=== PATIENT | female | born 1965 | race Two or more races ===

== ENCOUNTER → 2016-11-28 | Outpatient (CLI) | payer OTHER ==
[~2016-11-28] MED LIST: CETI10TA22 PO; GADOBUTROL 10 MMOL/10 ML VIAL IV ONE; VENTOLIN HFA18 GM INH
--- NOTE | 2016-11-29 11:51 | KCIC ---
PROCEDURE MRI of the pelvis without and with contrast 11/28/2016 HISTORY Pelvic pain and discomfort for 2 years. TECHNIQUE Unenhanced T1 weighted axial and coronal, T2 weighted sagittal axial and coronal and inversion recovery coronal images of the pelvis were obtained. After the intravenous administration 9 cc of Gadavist, enhanced fat saturated T1 weighted sagittal, axial and coronal images were obtained. FINDINGS No previous imaging studies are available for comparison. Small nabothian cysts are seen within the cervix. These measure 4 millimeters to 8 millimeters in size. The uterus is within normal limits in morphology and signal characteristics. No uterine fibroid is seen. A 1.3 centimeter oval-shaped high signal intensity lesion is seen on the T2 weighted images in the right adnexa which likely represents a dominant follicle. No significant adnexal mass is seen. No free fluid is noted. No area of abnormal contrast enhancement is noted. IMPRESSION Essentially negative study. Electronically signed by: Nnamdi Aguero MD (Nov 29, 2016 11:50:17)
== END | disposition home or self-care (01) ==
LOC: KCIC MRI 15:17
PROVIDERS: ATTEND Nurse Practitioner Family
DX: R10.2 Pelvic and perineal pain (principal)
CPT/HCPCS: 72197; A9585